=== PATIENT | female | born 1980 | race African-American/Black ===

== ENCOUNTER 2016-06-21 11:30 | Emergency (ER) | payer MEDICAID, OTHER ==
[~2016-06-21] VITALS: Ht 162.6 cm; Wt 90.7 kg
[2016-06-21] MEDS ORDERED: SODIUM CHLORIDE 0.9% 1,000 ML IVB ONE (11:41)
[2016-06-21] MEDS ORDERED: PANTOPRAZOLE SODIUM 40 MG/10 ML VIAL IV ONE (11:45)
[2016-06-21] MEDS ORDERED: HYDROmorphone HCL 2 MG/ML VL IV ONE ×2 (11:45→16:00)
[2016-06-21] MEDS ORDERED: PROCHLORPERAZINE EDISYLATE 5 MG/ML 2ML VIAL IV ONE (11:45)
[2016-06-21 12:07] LABS: Basophils # (auto) 0 uL; Basophils % (auto) 0.3 % (0.0-2.0); Eosinophils # (auto) 0 uL; Eosinophils % (auto) 0.7 % (0.0-7.0); Hematocrit 45.9 % (36.0-46.0); Lymphocytes % (auto) 17.7 % (10.0-50.0); Mean Corpuscular Hemoglobin 30.7 pg (28.0-32.0); Mean Corpuscular Hgb Conc. 32.6 g/dL (32.0-36.0); Mean Corpuscular Volume 94.2 fL (80.0-100.0); Mean Platelet Volume 9.3 fL (7.4-10.4); Monocytes # (auto) 0 uL; Monocytes % (auto) 0.4 % (0.0-12.0); Neutrophils # (auto) 4.8 uL; Neutrophils % (auto) 80.9 % (37.0-80.0); Platelet Count (auto) 224 10^3/uL (140-450); Red Cell Distribution Width 14.4 % (11.6-16.0); White Blood Cell 5.9 10^3/uL (4.4-10.8)
[2016-06-21 12:32] LABS: Albumin 3.9 g/dL (3.4-5.0); BUN/Creatinine Ratio 8.9; Bilirubin, Total 0.8 mg/dL (0.2-1.0); Magnesium 2.2 mg/dL (1.6-2.6); Potassium 3.5 mmol/L (3.5-5.1); Total Protein 7.2 g/dL (6.4-8.2)
[2016-06-21 14:57] LABS: Urine RBC None Seen /hpf (0 - 4)
[2016-06-21 15:38] LABS: Urine Bilirubin Negative (Negative); Urine Blood Negative /uL (Negative); Urine Color Yellow (Yellow); Urine Glucose TRACE mg/dL (Normal); Urine Mucus FEW (None Seen); Urine Nitrite Negative (Negative); Urine Squamous Epithelial Cell FEW /hpf (<5); Urine Urobilinogen Normal (Negative)
[2016-06-21 15:40] LABS: Urine Ketone 3+ (Negative)
[2016-06-21] MEDS ORDERED: LORazepam 2MG/ML-1ML VIAL IV ONE (16:00)
[2016-06-21 16:27] VITALS: BP 165/119
== END 2016-06-21 17:20 | disposition home or self-care (01) ==
LOC: ER 11:39
DX: K29.70 Gastritis, unspecified, without bleeding (principal); I10 Essential (primary) hypertension; F17.210 Nicotine dependence, cigarettes, uncomplicated; F12.10 Cannabis abuse, uncomplicated; Z90.49 Acquired absence of other specified parts of digestive tract
CPT/HCPCS: 36415; 74176; 80053; 81001; 82150; 83690; 83735; 84702; 85025; 93005; 94761; 96361; 96374; 96375; 96376; 99285; C9113; J0780; J1170; J2060; J7030

== ENCOUNTER 2016-07-18 19:57 | Emergency (ER) | payer MEDICAID ==
[~2016-07-18] VITALS: Ht 152.4 cm; Wt 90.7 kg
[2016-07-18 20:31] LABS: Basophils # (auto) 0 uL; Basophils % (auto) 0.1 % (0.0-2.0); Eosinophils # (auto) 0 uL; Eosinophils % (auto) 0.1 % (0.0-7.0); Hemoglobin 15.1 g/dL (12.2-16.2); Lymphocytes % (auto) 13.7 % (10.0-50.0); Mean Corpuscular Hemoglobin 30.6 pg (28.0-32.0); Mean Corpuscular Volume 95.7 fL (80.0-100.0); Mean Platelet Volume 9.2 fL (7.4-10.4); Monocytes # (auto) 0.1 uL; Monocytes % (auto) 0.9 % (0.0-12.0); Neutrophils # (auto) 6.3 uL; Neutrophils % (auto) 85.2 % (37.0-80.0); Platelet Count (auto) 271 10^3/uL (140-450); White Blood Cell 7.3 10^3/uL (4.4-10.8)
[2016-07-18 20:54] LABS: Albumin 4.1 g/dL (3.4-5.0); Calcium 8.7 mg/dL (8.5-10.1); Potassium 3.5 mmol/L (3.5-5.1)
[2016-07-18 21:04] LABS: Total Protein 7.5 g/dL (6.4-8.2)
[2016-07-19] MEDS ORDERED: PROMETHAZINE HCL 25 MG/ML 1ML IV ONE (00:15)
[2016-07-19] MEDS ORDERED: SODIUM CHLORIDE 0.9% 1,000 ML IV ONE (00:58)
[2016-07-19 01:07] LABS: Urine RBC None Seen /hpf (0 - 4)
[2016-07-19] MEDS ORDERED: KETOROLAC TROMETH 30 MG/ML 1ML VIAL ONE (01:07)
[2016-07-19] MEDS ORDERED: ONDANSETRON HCL 4 MG/2 ML VIAL ONE (01:08)
[2016-07-19] MEDS ORDERED: KETOROLAC TROMETH 30 MG/ML 1ML VIAL IV ONE (01:15)
[2016-07-19] MEDS ORDERED: ONDANSETRON HCL 4 MG/2 ML VIAL IV ONE (01:15)
[2016-07-19 01:26] LABS: Urine Bilirubin Negative (Negative); Urine Blood Negative /uL (Negative); Urine Color Yellow (Yellow); Urine Glucose Normal (Normal); Urine Mucus FEW (None Seen); Urine Nitrite Negative (Negative); Urine Squamous Epithelial Cell FEW /hpf (<5); Urine Urobilinogen Normal (Negative); Urine pH 7.5 (5.0-8.0)
[2016-07-19 01:27] LABS: Urine Ketone 4+ (Negative)
[2016-07-19 02:36] VITALS: BP 157/75
== END 2016-07-19 03:05 | disposition home or self-care (01) ==
LOC: EDBD 19:57 → ER 20:07
DX: E86.0 Dehydration (principal); I10 Essential (primary) hypertension; F17.210 Nicotine dependence, cigarettes, uncomplicated; F12.10 Cannabis abuse, uncomplicated
CPT/HCPCS: 36415; 74176; 80053; 81001; 81025; 85025; 94761; 96361; 96374; 96375; 99285; J1885; J2405; J2550; J7030